=== PATIENT | female | born 1950 | race Caucasian/White ===

== ENCOUNTER 2017-11-06 16:32 | Inpatient (IN) ==
--- NOTE | 2017-11-06 17:52 | Emergency Department Note ---
Disposition Clinical Impression: Fracture of femoral neck, right Qualifiers: Encounter type: initial encounter Fracture type: closed Qualified Code(s): S72.001A - Fracture of unspecified part of neck of right femur, initial encounter for closed fracture Fall Qualifiers: Encounter type: initial encounter Qualified Code(s): W19.XXXA - Unspecified fall, initial encounter Disposition: Admitted As Inpatient Condition: Fair Time of Disposition: 00:42 Fall HPI - General Chief Complaint: ED Fall Stated Complaint: fall w/ right hip pain Time Seen by Provider: 11/06/17 17:42 Source: patient, family, EMS Mode of arrival: EMS Limitations: other Nursing Notes Reviewed: Yes Vital Signs Reviewed: Yes - History of Present Illness HPI Narrative: 67-year-old female complains of ground level mechanical fall 1 hour ago. Patient was standing when she suddenly lost her balance slipped and landed on her right hip where she currently feels 10 out of 10 sharp pain with movement. There is no loss of consciousness. Patient states she did not hit her head. Patient only has pain symptoms at the right hip. - Related Data Home Medications Medication Instructions Recorded Confirmed Aspirin Enteric Coated [Aspirin EC] 81 mg PO DAILY 08/15/16 11/06/17 Citalopram [CeleXA] 20 mg PO DAILY 08/15/16 11/06/17 Multivitamin [One Daily 1 each PO DAILY 11/06/17 11/06/17 Multivitamin] Mv-Mn/FA/Vit K1/Lycop/Lut/Zeax 1 each PO DAILY 11/06/17 11/06/17 [Ocuvite Eye + Multi Tablet] Pravastatin Sodium [Pravachol] 20 mg PO HS 11/06/17 11/06/17 Allergies Allergy/AdvReac Type Severity Reaction Status Date / Time No Known Allergies Allergy Verified 08/10/17 07:48 All systems ED: reviewed and negative except as stated. 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 - Social History Smoking Status: Never smoker Alcohol use: Reports: none Drug use: Reports: none Physical Exam Vital Signs Temperature 98.8 F 11/06/17 17:04 Pulse Rate 64 11/06/17 17:04 Respiratory Rate 20 11/06/17 17:04 Blood Pressure 135/80 11/06/17 17:04 O2 Sat by Pulse Oximetry 98 11/06/17 17:04 Temperature 98.8 F 11/06/17 17:04 Pulse Rate 64 11/06/17 17:04 Respiratory Rate 20 11/06/17 17:04 Blood Pressure 135/80 11/06/17 17:04 O2 Sat by Pulse Oximetry 98 11/06/17 17:04 Oxygen Delivery Oxygen Delivery Room Air CONSTITUTIONAL: Alert and oriented X3, well-nourished, well appearing, in no apparent distress HEAD: Normocephalic; atraumatic. EYES: PERRL, no scleral icterus. NOSE: The nose is normal in appearance without rhinorrhea RESP: Normal chest excursion with respiration; breath sounds clear and equal bilaterally; no wheezes, rhonchi, or rales CARD: Regular rhythm, without murmurs, rub or gallop ABD: Non-distended; non-tender, soft,without rigidity, rebound or guarding Back: Nontender to palpation SKIN: Normal for age and race; warm and dry; no apparent lesions EXTREMITIES: Pulses are 2 plus and equal times 4 extremities, no peripheral edema or calf muscle pain. Right lower extremity shortened and externally rotated. Tender at the hip. No tenderness at the knee or ankle, - General Limitations: no limitations General appearance: alert, in no apparent distress - Head Head exam: atraumatic, normocephalic, normal inspection - Eye Eye exam: Present: normal appearance, PERRL, EOMI. Absent: periorbital swelling , periorbital tenderness - ENT ENT exam: normal exam, normal oropharynx - Neck Neck exam: Present: normal inspection. Absent: tenderness (no midline cervical tenderness) - Chest Chest inspection: Present: normal inspection - Respiratory Respiratory exam: Present: normal lung sounds bilaterally - Cardiovascular Cardiovascular exam: Present: regular rate, normal rhythm, normal heart sounds - Abdominal Exam Abdominal exam: Present: soft, Non-Tender, normal bowel sounds - Extremities Exam Extremities exam: Present: tenderness, other (hip TTP and unable to perform ROM at R hip without significant pain. RLE externally rotated and shortened; NVI; remainder on RLE nontenter and full rOM. LLE wnl.) - Expanded Lower Extremity Exam Hip/Pelvis exam: Present: tenderness, external rotation, shortening Upper leg exam: Present: normal inspection Knee exam: Present: normal inspection Lower leg exam: Present: normal inspection Ankle exam: Present: normal inspection Foot/toe exam: Present: normal inspection Neurovascular/Tendon exam: Present: normal capillary refill. Absent: pulse deficit, motor deficit, sensory deficit - Back Exam Back exam: Present: normal inspection. Absent: tenderness, CVA tenderness (R), CVA tenderness (L), paraspinal tenderness, vertebral tenderness - Neurological Exam Neurological exam: Present: alert, oriented X3, CN II-XII intact. Absent: normal gait, reflexes normal - Psychiatric Psychiatric exam: Absent: normal affect, normal mood - Skin Skin exam: Absent: warm, dry, intact, normal color, other (no abrasions/lacs/ contusions) Course - Reevaluation(s) Reevaluation #1: Patient placed in a c-collar, labs and imaging order to include CT cervical, chest x-ray, pelvis and hip. IV normal saline and Zofran and fentanyl ordered Time: 19:07 Reevaluation #2: Patient's back from imaging. Patient states her pain is under control Time: 19:09 Reevaluation #3: Patient doing well and pain is still controlled Time: 19:48 Additional Reevaluation(s): 2030 hrs.: Patient doing well, CT cervical negative for fracture and c-collar removed. - Consultations Consultation #1: adilia Time: 20:41 Vital Signs Temperature 98.8 F 11/06/17 17:04 Pulse Rate 64 11/06/17 17:04 Respiratory Rate 20 11/06/17 17:04 Blood Pressure 135/80 11/06/17 17:04 O2 Sat by Pulse Oximetry 98 11/06/17 17:04 Temperature 99.3 F 11/07/17 12:27 Pulse Rate 64 11/07/17 12:27 Respiratory Rate 16 11/07/17 12:27 Blood Pressure 155/71 11/07/17 12:27 O2 Sat by Pulse Oximetry 95 11/07/17 12:27 Oxygen Delivery Oxygen Delivery Room Air Fall - MDM Narrative Medical decision making narrative: Ground-level mechanical fall without loss of consciousness concerning for possible right hip fracture. Patient's right lower extremity shows clinical signs of fracture with shortening and external rotatation. X-rays ordered, CT head and CT cervical spine also ordered to rule out other fractures. Chest x- ray ordered as well. Patient will most likely need surgery and preop labs ordered. X-ray shows acute right sided femoral neck fracture. Patient was given 25 g of fentanyl for pain. Patient currently resting easy pain-free. The rest the patient's imaging was free of fractures. I contacted Dr. Hope of orthopedics who states that he will see the patient in the morning. Preop labs ordered and were clinically unremarkable. WBC count mildly elevated most likely secondary to stress Demargination. Current plan is for admission to medicine. The patient family accepts decision for admission. Dr. Ruiz the hospitalist has accepted patient for admission in stable position. - Lab Data Lab results reviewed: Yes I reviewed the patient's lab results. Lab results narrative: Short CBC 11/06/17 Range/Units 18:20 WBC 12.5 H (4.3-11.1) K/mcL Hgb 13.1 (11.5-15.4) g/dL Hct 39.6 (35.3-44.9) % Plt Count 274 (140-400) K/mcL Neutrophils # 10.3 H (1.6-8.9) K/mcL BMP 11/06/17 Range/Units 18:20 Sodium 139 (136-145) mEq/L Potassium 4.2 (3.5-5.1) mEq/L Chloride 103 (98-107) mEq/L Carbon Dioxide 29 (23-29) mEq/L BUN 19 (8-23) mg/dL Creatinine 0.88 (0.60-1.20) mg/dL Glucose 224 H (70-105) mg/dL Calcium 9.3 (8.6-10.3) mg/dL Cardiac Enzymes 11/06/17 Range/Units 18:20 Troponin I < 0.03 (< 0.04) ng/mL Urine 11/06/17 Range/Units 20:00 Urine Color Yellow (Yellow) Urine Clarity Clear (Clear) Urine pH 6.5 (5.0-8.0) pH Units Ur Specific [place] 1.023 (1.010-1.025) Urine Protein Negative (Neg-Trace) mg/dL Urine Glucose (UA) 100 H (Normal) mg/dL Result diagrams: 11/07/17 05:19 11/07/17 05:19 Lab Results 11/06/17 11/06/17 11/06/17 Range/Units 18:20 18:20 18:20 WBC 12.5 H (4.3-11.1) K/mcL RBC 4.28 (3.82-4.97) M/mcL Hgb 13.1 (11.5-15.4) g/dL Hct 39.6 (35.3-44.9) % MCV 92.5 (83.0-100.0) fL MCH 30.6 (28.0-33.3) pg MCHC 33.1 (31.6-35.5) g/dL RDW 11.8 (11.5-14.5) % Plt Count 274 (140-400) K/mcL MPV 9.2 L (9.4-12.4) fL Immature Gran % 0.9 (0-4) % Seg Neutrophils % 82.4 % Lymphocytes % 11.4 % Monocytes % 4.1 % Eosinophils % 0.6 % Basophils % 0.6 % Neutrophils # 10.3 H (1.6-8.9) K/mcL Lymphocytes # 1.4 (0.6-4.6) K/mcL Monocytes # 0.5 (0.0-1.3) K/mcL Eosinophils # 0.1 (0.0-0.6) K/mcL Basophils # 0.1 (0.0-0.2) K/mcL Sodium 139 (136-145) mEq/L Potassium 4.2 (3.5-5.1) mEq/L Chloride 103 (98-107) mEq/L Carbon Dioxide 29 (23-29) mEq/L BUN 19 (8-23) mg/dL Creatinine 0.88 (0.60-1.20) mg/dL Est GFR ( Amer) > 60 (> 60) Est GFR (Non-Af Amer) > 60 (> 60) BUN/Creatinine Ratio 22 (6-26) Glucose 224 H (70-105) mg/dL Calculated Osmolality 297 (280-300) Calcium 9.3 (8.6-10.3) mg/dL Troponin I < 0.03 (< 0.04) ng/mL Urine Color (Yellow) Urine Clarity (Clear) Urine pH (5.0-8.0) pH Units Ur Specific [place] (1.010-1.025) Urine Protein (Neg-Trace) mg/dL Urine Glucose (UA) (Normal) mg/dL Urine Ketones (Negative) mg/dL Urine Blood (Negative) Urine Nitrite (Negative) Urine Bilirubin (Negative) Urine Urobilinogen (Normal) mg/dL Ur Leukocyte Esterase (Negative) Urine Microscopic RBC (0-3) per hpf Urine Microscopic WBC (0-3) per hpf Ur Squamous Epith Cells (None-Few) per lpf Urine Bacteria (None-Few) per hpf Hyaline Casts (None-Few) per lpf 11/06/17 Range/Units 20:00 WBC (4.3-11.1) K/mcL RBC (3.82-4.97) M/mcL Hgb (11.5-15.4) g/dL Hct (35.3-44.9) % MCV (83.0-100.0) fL MCH (28.0-33.3) pg MCHC (31.6-35.5) g/dL RDW (11.5-14.5) % Plt Count (140-400) K/mcL MPV (9.4-12.4) fL Immature Gran % (0-4) % Seg Neutrophils % % Lymphocytes % % Monocytes % % Eosinophils % % Basophils % % Neutrophils # (1.6-8.9) K/mcL Lymphocytes # (0.6-4.6) K/mcL Monocytes # (0.0-1.3) K/mcL Eosinophils # (0.0-0.6) K/mcL Basophils # (0.0-0.2) K/mcL Sodium (136-145) mEq/L Potassium (3.5-5.1) mEq/L Chloride (98-107) mEq/L Carbon Dioxide (23-29) mEq/L BUN (8-23) mg/dL Creatinine (0.60-1.20) mg/dL Est GFR ( Amer) (> 60) Est GFR (Non-Af Amer) (> 60) BUN/Creatinine Ratio (6-26) Glucose (70-105) mg/dL Calculated Osmolality (280-300) Calcium (8.6-10.3) mg/dL Troponin I (< 0.04) ng/mL Urine Color Yellow (Yellow) Urine Clarity Clear (Clear) Urine pH 6.5 (5.0-8.0) pH Units Ur Specific [place] 1.023 (1.010-1.025) Urine Protein Negative (Neg-Trace) mg/dL Urine Glucose (UA) 100 H (Normal) mg/dL Urine Ketones Negative (Negative) mg/dL Urine Blood Negative (Negative) Urine Nitrite Positive A (Negative) Urine Bilirubin Negative (Negative) Urine Urobilinogen Normal (Normal) mg/dL Ur Leukocyte Esterase Negative (Negative) Urine Microscopic RBC 0-3 (0-3) per hpf Urine Microscopic WBC 0-3 (0-3) per hpf Ur Squamous Epith Cells Many H (None-Few) per lpf Urine Bacteria Many H (None-Few) per hpf Hyaline Casts None Seen (None-Few) per lpf - Radiology Data Radiology results reviewed: Yes I reviewed the patient's radiology results. Hip X-Ray 11/06/17 17:08 IMPRESSION: Acute right femoral neck fracture. D/ / Tyler Hu MD / Tyler Hu MD Interpreting Provider: Tyler Hu MD Cervical Spine CT 11/06/17 17:58 IMPRESSION: No acute abnormality of the cervical spine. D/ / Nakul Case MD / Nakul Case MD Interpreting Provider: Nakul Case MD Chest X-Ray 11/06/17 17:59 IMPRESSION: No acute abnormality. D/ / Tyler Hu MD / Tyler Hu MD Interpreting Provider: Tyler Hu MD Head CT 11/06/17 19:00 IMPRESSION: Somewhat limited evaluation due to streak artifact. No obvious acute intracranial pathology. No intracranial hemorrhage, mass effect, or midline shift. D/ / Bart Luciano MD / Bart Luciano MD Interpreting Provider: Bart Luciano MD - EKG Data EKG attestation: Yes I reviewed and interpreted this EKG. EKG results narrative: EKG taken 11/06/2017 at 1947 hrs. shows sinus rhythm at a rate of 71 beats minute with no acute ST elevations or depressions and any leads, no crit or no QT prolongation. Attestation Statement - Attestation Attestation: I examined this patient and my medical decision-making was reviewed with the Resident Physician, Dr. Vu. I agree with the documented findings, disposition and treatment plan as described except to the extent set forth below. 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 was attempting to assist her in getting out of the vehicle, when she lost her footing and fell onto her R hip. Pt with immediate pain and inability to get up. Pt with no head injury, no c/o neck/back pain. No other injuries sustained in fall. Pt arrives with pain at R hip with shortening and external rotation of RLE. NVI with good pulses and cap refill. No TTP at knee/ankle. Pt placed in c- collar secondary to distracting injury. I agree with pt's PE findings as documented. Pt with PIV est, and given IV pain/nausea meds, placed on CM/pulse ox, and EKG obtained. shows NSR with no ischemia. Pt had labs sent, kerns placed with UA sent, and sent for imaging. Labs wnl, with exception of mild elevation of glucose without acidosis. Pt's daughter arrived later in ED course. State her mother has significant short term memory loss from remote cerebral aneurysm, and concerned with possible head injury. Pt awake and alert, GCS=15, normal neuro exam, but included CT brain due to daughter's concern and small 1 cm palpable area of STS to center of frontal area of scalp. No contusion/hematoma/ecchymosis/abrasions. CT head/neck wnl. C-collar removed. CXR wnl. R hip/pelvis shows acute femoral neck fx. D/W ortho, conculted from ED to see pt. Pt admitted to hospitalist. Results d/w pt and family.
[2017-11-06] MEDS ORDERED: *HR* HYDROcodone/Acet 5/325 mg TABLET PO ONE (17:53)
[2017-11-06] MEDS ORDERED: *HR* FentaNYL (PF) 100 MCG/2 ML VIAL IVP ONE ×2 (18:00→19:14)
[2017-11-06] MEDS ORDERED: 0.9 % Sodium Chloride 1,000 ML IVC ONE (18:00)
[2017-11-06] MEDS ORDERED: Ondansetron 4 MG/2 ML VIAL IVP ONE (18:00)
[2017-11-06 18:49] LABS: BUN/Creatinine Ratio 22 (6-26); Blood Urea Nitrogen 19 mg/dL (8-23); Calcium 9.3 mg/dL (8.6-10.3); Carbon Dioxide 29 mEq/L (23-29); Chloride 103 mEq/L (98-107); Glucose 224 mg/dL (70-105); Osmolality,Calculated 297 (280-300); Potassium 4.2 mEq/L (3.5-5.1); Sodium 139 mEq/L (136-145); eGFR For African Americans > 60 (> 60); eGFR For Non-African Americans > 60 (> 60)
[2017-11-06 18:52] LABS: Basophils # 0.1 K/mcL (0.0-0.2); Basophils % 0.6 %; Eosinophils # 0.1 K/mcL (0.0-0.6); Eosinophils % 0.6 %; Hematocrit 39.6 % (35.3-44.9); Hemoglobin 13.1 g/dL (11.5-15.4); Immature Granulocytes % 0.9 % (0-4); Lymphocytes # 1.4 K/mcL (0.6-4.6); Lymphocytes % 11.4 %; Mean Corpuscular HGB Conc 33.1 g/dL (31.6-35.5); Mean Corpuscular Hemoglobin 30.6 pg (28.0-33.3); Mean Corpuscular Volume 92.5 fL (83.0-100.0); Mean Platelet Volume 9.2 fL (9.4-12.4); Monocytes # 0.5 K/mcL (0.0-1.3); Monocytes % 4.1 %; Neutrophils # 10.3 K/mcL (1.6-8.9); Platelet Count 274 K/mcL (140-400); Red Blood Count 4.28 M/mcL (3.82-4.97); Red Cell Distribution Width 11.8 % (11.5-14.5); Segmented Neutrophils % 82.4 %
[2017-11-06 20:28] LABS: Bilirubin,Urine Negative (Negative); Blood,Urine Negative (Negative); Clarity,Urine Clear (Clear); Color,Urine Yellow (Yellow); Glucose,Urine (UA) 100 mg/dL (Normal); Ketones,Urine Negative (Negative); Leukocyte Esterase,Urine Negative (Negative); Nitrite,Urine Positive (Negative); PH,Urine 6.5 pH Units (5.0-8.0); Protein,Urine Negative (Neg-Trace); Specific Gravity,Urine 1.023 (1.010-1.025); Urobilinogen,Urine Normal (Normal)
[2017-11-06 20:30] LABS: Bacteria,Urine Many per hpf (None-Few); Hyaline Casts,Urine None Seen per lpf (None-Few); RBC,Urine 0-3 per hpf (0-3); Squamous Epithelial Cell,Urine Many per lpf (None-Few); WBC,Urine 0-3 per hpf (0-3)
[2017-11-06] MEDS ORDERED: Naloxone 0.4 MG/ML INJ IVP PRN (21:34)
--- NOTE | 2017-11-06 21:48 | Internal Med History&Physical ---
Date of Encounter: 11/06/17 Time of Encounter: 21:00 Assessment and Plan (1) Fracture of femoral neck, right Current visit: Yes Status: Acute Pt has mechanical fall and Rt femoral neck fracture, need surgery. - Consult orthopedics - IVF, NPO from midnight, pain med as needed - EKG reviewed, unremarkable - Pt's daughter report "heart attack" in 2002 when she had cerabral hemmorhage, no chest pain or SOB since then, EKG unremarkable. Has hx of tachycardia and has ablation in 2002, no further tachycardia since then. Pt has short memory loss since 2002, stable in last 15 yrs. Pt bear certain risk for surgery but benifit of surgery override risks, family understand the risks. 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 (4) History of tachycardia Current visit: Yes Status: Acute Not sure what kind of tachycardia, SVT? WPW?, had ablation in 2002, no further tachycardia since then. (5) CAD (coronary artery disease) Current visit: Yes Status: Suspected Pt's daughter report "heart attack" in 2002, no stent or catheterization done. Pt has been stable since then, no chest pain or SOB. EKG reviewed, no evidence of old infarct. Qualifiers: Coronary Disease-Associated Artery/Lesion type: augustine artery [place] vs. transplanted heart: augustine heart Associated angina: without angina Qualified Code(s): I25.10 - Atherosclerotic heart disease of [place] coronary artery without angina pectoris (6) DVT prophylaxis Current visit: Yes Status: Acute SCD now, start AC after surgery Internal Medicine - H&P: HPI Chief complaint: Right hip pain Admitted From: Home Plans for Post Hospital Care: Home History of present illness: Ms. Gutierrez is a 67 year old female with hx of brain aneurysm complicated with brain hemorrhage s/p coil of aneurysm, Hx of tachycardia s/p ablation, hx of "heart attack", present to ER for mechanical fall and right hip pain. Pt has short memory problem due to brain aneurysm and hemorrhage, Hx obtained mainly from pt's daughter. Pt has fall today when she get out of the car. Denies LOC, denies head/neck injury. Pt is general fine, denies recent fever, cough, SOB, chest pain, nausea or vomiting. In ER, Hip XR shows right femoral neck fracture. Orthopedic consult called by ER, admitted for surgery. Past Med Surg Social Fam HX - Past Medical History Medical history: dementia, other Psychiatric history: no psych history - Social History Smoking Status: Never smoker Smokeless Tobacco Status: No Alcohol use: none Drug use: none - Family History Mother History Unknown: Yes Internal Medicine - H&P: Meds Aspirin Enteric Coated [Aspirin EC] 81 mg PO DAILY 08/15/16 [History] Citalopram [CeleXA] 20 mg PO DAILY 08/15/16 [History] Multivitamin [One Daily Multivitamin] 1 each PO DAILY 11/06/17 [History] Mv-Mn/FA/Vit K1/Lycop/Lut/Zeax [Ocuvite Eye + Multi Tablet] 1 each PO DAILY 03/18 [History] Pravastatin Sodium [Pravachol] 20 mg PO HS 11/06/17 [History] 3 Allergy/AdvReac Type Severity Reaction Status Date / Time No Known Allergies Allergy Verified 08/10/17 07:48 All Systems PM: A 10-system review of systems was performed and is negative for pertinent findings except as documented above in the HPI. - Constitutional Vitals: Temp Pulse Resp BP Pulse Ox 98.8 F 87 16 137/82 96 11/06/17 17:04 11/06/17 21:08 11/06/17 21:08 11/06/17 21:08 11/06/17 21:08 General appearance: Present: A&O X 2, pleasant, no acute distress, answers questions appropriately - Head Head exam: Present: atraumatic, normocephalic - Eye Eye exam: Present: PERRL, conjuntiva pink, sclera anicteric Pupils: Present: PERRL - Neck Neck exam general surgery: Present: supple, trachea midline. Absent: lymphadenopathy - Respiratory Respiratory exam: Present: CTAB. Absent: accessory muscle use, rales, rhonchi, wheezes - Cardiovascular Cardiovascular exam: Present: RRR, +S1, +S2. Absent: diastolic murmur, gallop, rubs, systolic murmur - GI/Abdominal GI/Abdominal exam: Present: normal bowel sounds, soft, no peritoneal signs. Absent: distended, tenderness - Extremities Exam Extremities exam: Present: warm, radial pulses palpable and symmetrical. Absent : calf tenderness, cyanotic, pedal edema Additional comments: Right leg ROM limited due to pain - Neurological Exam Neurological exam: Present: CN II-XII intact, oriented X3, no focal deficits. Absent: pronater drift, facial droop, speech deficit - Skin Skin exam: Present: dry, intact Internal Med - H&P Results - Labs CBC & Chem 7: 11/06/17 18:20 11/06/17 18:20 Labs: Short CBC 11/06/17 Range/Units 18:20 WBC 12.5 H (4.3-11.1) K/mcL Hgb 13.1 (11.5-15.4) g/dL Hct 39.6 (35.3-44.9) % Plt Count 274 (140-400) K/mcL Neutrophils # 10.3 H (1.6-8.9) K/mcL BMP 11/06/17 18:20 Sodium 139 Potassium 4.2 Chloride 103 Carbon Dioxide 29 BUN 19 Creatinine 0.88 Glucose 224 H Calcium 9.3 Cardiac Enzymes 11/06/17 Range/Units 18:20 Troponin I < 0.03 (< 0.04) ng/mL Urine 11/06/17 Range/Units 20:00 Urine Color Yellow (Yellow) Urine Clarity Clear (Clear) Urine pH 6.5 (5.0-8.0) pH Units Ur Specific [place] 1.023 (1.010-1.025) Urine Protein Negative (Neg-Trace) mg/dL Urine Glucose (UA) 100 H (Normal) mg/dL - EKG Data -: EKG Interpreted by Myself EKG shows normal: sinus rhythm, ST-T waves (non-specific changes, no ST elevation depression or T inversion.) Rate: normal - Impressions ITS Impressions Hip X-Ray 11/06/17 17:08 IMPRESSION: Acute right femoral neck fracture. D/ / Tyler Hu MD / Tyler Hu MD Interpreting Provider: Tyler Hu MD Cervical Spine CT 11/06/17 17:58 IMPRESSION: No acute abnormality of the cervical spine. D/ / Nakul Case MD / Nakul Case MD Interpreting Provider: Nakul Case MD Chest X-Ray 11/06/17 17:59 IMPRESSION: No acute abnormality. D/ / Tyler Hu MD / Tyler Hu MD Interpreting Provider: Tyler Hu MD Head CT 11/06/17 19:00 IMPRESSION: Somewhat limited evaluation due to streak artifact. No obvious acute intracranial pathology. No intracranial hemorrhage, mass effect, or midline shift. D/ / Bart Luciano MD / Bart Luciano MD Interpreting Provider: Bart Luciano MD
[2017-11-07] MEDS: 0.9 % Sodium Chloride 1,000 ML IVC SCH ×2 (00:06→03:59)
[2017-11-07] MEDS: Ketorolac 15 MG/ML VIAL IVP PRN ×2 (00:08→08:14)
[2017-11-07 05:47] LABS: Basophils % 0.2 %; Hematocrit 35.7 % (35.3-44.9); Hemoglobin 12.5 g/dL (11.5-15.4); Immature Granulocytes % 0.5 % (0-4); Lymphocytes # 1.4 K/mcL (0.6-4.6); Lymphocytes % 11.3 %; Mean Corpuscular Hemoglobin 31.6 pg (28.0-33.3); Mean Corpuscular Volume 90.4 fL (83.0-100.0); Mean Platelet Volume 9.1 fL (9.4-12.4); Monocytes # 0.7 K/mcL (0.0-1.3); Monocytes % 5.6 %; Neutrophils # 10.2 K/mcL (1.6-8.9); Platelet Count 248 K/mcL (140-400); Red Blood Count 3.95 M/mcL (3.82-4.97); Red Cell Distribution Width 11.9 % (11.5-14.5); Segmented Neutrophils % 82.4 %
[2017-11-07 06:01] LABS: INR 1.1; Prothrombin Time 12.3 Seconds (9.4-12.1)
[2017-11-07 06:02] LABS: BUN/Creatinine Ratio 19 (6-26); Blood Urea Nitrogen 16 mg/dL (8-23); Calcium 8.9 mg/dL (8.6-10.3); Carbon Dioxide 29 mEq/L (23-29); Chloride 101 mEq/L (98-107); Glucose 152 mg/dL (70-105); Magnesium 1.9 mg/dL (1.6-2.6); Osmolality,Calculated 286 (280-300); Potassium 4.1 mEq/L (3.5-5.1); Sodium 136 mEq/L (136-145); eGFR For African Americans > 60 (> 60); eGFR For Non-African Americans > 60 (> 60)
--- NOTE | 2017-11-07 08:30 | Orthopedic Consult Note ---
Date of Encounter: 11/07/17 Time of Encounter: 08:29 History of Present Illness HPI: Ms. Gutierrez is a 67 year old female Status post fall yesterday with injury to right hip. Patient has a history of aneurysm which resulted in short-term memory loss. Patient seen with her family. Family denies any head trauma recently Physical exam Right lower extremity Neurovascular intact Decreased range of motion secondary to pain Short externally Rotated X-rays displaced right femoral neck fracture Recommendation right hip hemiarthroplasty. Past Med Surg Social Fam HX - Past Medical History Medical history: dementia, other Psychiatric history: no psych history - Social History Smoking Status: Never smoker Smokeless Tobacco Status: No Alcohol use: none Drug use: none - Family History Mother History Unknown: Yes Medications and Allergies Aspirin Enteric Coated [Aspirin EC] 81 mg PO DAILY 08/15/16 [History] Citalopram [CeleXA] 20 mg PO DAILY 08/15/16 [History] Multivitamin [One Daily Multivitamin] 1 each PO DAILY 11/06/17 [History] Mv-Mn/FA/Vit K1/Lycop/Lut/Zeax [Ocuvite Eye + Multi Tablet] 1 each PO DAILY 03/18 [History] Pravastatin Sodium [Pravachol] 20 mg PO HS 11/06/17 [History] 3 Allergy/AdvReac Type Severity Reaction Status Date / Time No Known Allergies Allergy Verified 08/10/17 07:48 All Systems Reviewed: A 10-system review of systems was performed and is negative for pertinent findings except as documented above in the HPI. Physical Exam - Constitutional Vitals: Temp Pulse Resp BP Pulse Ox 100.2 F H 94 16 147/73 98 11/07/17 05:10 11/07/17 06:30 11/07/17 06:30 11/07/17 06:30 11/07/17 06:30 Results - Labs Result Diagrams: 11/07/17 05:19 11/07/17 05:19 Labs: Abnormal lab results WBC 12.4 K/mcL (4.3-11.1) H 11/07/17 05:19 MPV 9.1 fL (9.4-12.4) L 11/07/17 05:19 Neutrophils # 10.2 K/mcL (1.6-8.9) H 11/07/17 05:19 PT 12.3 Seconds (9.4-12.1) H 11/07/17 05:19 Glucose 152 mg/dL (70-105) H 11/07/17 05:19 Urine Glucose (UA) 100 mg/dL (Normal) H 11/06/17 20:00 Urine Nitrite Positive (Negative) A 11/06/17 20:00 Ur Squamous Epith Cells Many per lpf (None-Few) H 11/06/17 20:00 Urine Bacteria Many per hpf (None-Few) H 11/06/17 20:00 H & H 11/07/17 Range/Units 05:19 Hgb 12.5 (11.5-15.4) g/dL Hct 35.7 (35.3-44.9) % All other labs normal. Consult Discharge Plan - Plan Referrals: Macie Barber, SENIOR USER EXPERIENCE ARCHITECT [Primary Care Provider] -
[2017-11-07] MEDS ORDERED: Aspirin Enteric Coated 81 MG Tablet PO SCH (09:00)
--- NOTE | 2017-11-07 10:03 | Internal Med Progress Note ---
Date of Encounter: 11/07/17 Time of Encounter: 09:45 - Assessment and plan (1) Fracture of femoral neck, right Current Visit: Yes Status: Acute Assessment and plan: At this point patient appears low risk for surgery. She apparently has prior coronary issues but no recent CP or other cardiac symptoms. Qualifiers: Encounter type: initial encounter Fracture type: closed Qualified Code(s) : S72.001A - Fracture of unspecified part of neck of right femur, initial encounter for closed fracture (2) Fever Current Visit: Yes Status: Acute Assessment and plan: Pt has had very low grade temp since admission. She has associated slight leukocytosis but no tachycardia. No cough or localizing symptoms of infection. May be related to acute injury to hip. Urine has nitrite but many epis. Will resend urine culture and check for influenza. CXR negative last night. At this time does not appear to be an issue with proceeding with surgery. Qualifiers: Fever type: due to other condition Qualified Code(s): R50.81 - Fever presenting with conditions classified elsewhere (3) CAD (coronary artery disease) Current Visit: Yes Status: Suspected Qualifiers: Coronary Disease-Associated Artery/Lesion type: [place] artery [place] vs. 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 She remains moderate to high risk due to potential for worsening clinical status. Ms Gutierrez had mechanical fall resulting in fracture R hip. She has had low grade temp since admission. Patient denies dysuria or cough. No myalgias or headache. No fever prior to admission. Denies abdominal pain or diarrhea. No rash. - Constitutional Vitals: Temp Pulse Resp BP Pulse Ox 100.2 F H 94 16 147/73 98 11/07/17 05:10 11/07/17 06:30 11/07/17 06:30 11/07/17 06:30 11/07/17 06:30 General appearance: Present: A&O X 2, pleasant, answers questions appropriately - Head Head exam: Present: atraumatic, normocephalic - Eye Eye exam: Present: EOMI, conjuntiva pink - ENT ENT exam: Present: mucous membranes dry - Respiratory Respiratory exam: Present: decreased breath sounds, CTAB Additional comments: Clear anteriorly and laterally bilaterally. - Cardiovascular Cardiovascular exam: Present: RRR. Absent: systolic murmur, tachycardia - GI/Abdominal GI/Abdominal exam: Present: normal bowel sounds, soft. Absent: tenderness - Extremities Exam Extremities exam: Present: tenderness, warm Additional comments: Tender R hip/groin - Neurological Exam Neurological exam: Present: alert. Absent: facial droop, speech deficit - Skin Skin exam: Present: warm. Absent: rash Internal Medicine: Result - Labs CBC & Chem 7: 11/07/17 05:19 11/07/17 05:19 Labs: Short CBC 11/07/17 Range/Units 05:19 WBC 12.4 H (4.3-11.1) K/mcL Hgb 12.5 (11.5-15.4) g/dL Hct 35.7 (35.3-44.9) % Plt Count 248 (140-400) K/mcL Neutrophils # 10.2 H (1.6-8.9) K/mcL BMP 11/07/17 05:19 Sodium 136 Potassium 4.1 Chloride 101 Carbon Dioxide 29 BUN 16 Creatinine 0.84 Glucose 152 H Calcium 8.9 - ABG Interpretation ABG results: PT/INR, D-dimer PT 12.3 Seconds (9.4-12.1) H 11/07/17 05:19 Consult Discharge Plan - Plan Referrals: Macie Barber, [employer] [Primary Care Provider] -
--- NOTE | 2017-11-07 12:42 | Electrocardiograph Report ---
[address] [place] [address] Test Date: 2017-11-06 Pat Name: Crystal Gutierrez Department: 102 Room: [facility] Gender: F Hr Operations Advisor: Amara : 1950 Requested By: Donaldo Vu Order Number: [id number] Reading MD: Leena Colon Measurements Intervals [place] Rate: 71 P: 68 [place]: 140 QRS: 12 QRSD: 86 T: 63 QT: 395 QTc: 418 Interpretive Statements SINUS RHYTHM NONSPECIFIC T-WAVE ABNORMALITY Electronically Signed On 11-07-2017 12:40:32 EST by Leena Colon
[2017-11-07 13:40] LABS: Adenovirus Not Detected (Not Detect); Bordetella Pertussis Not Detected (Not Detect); Chlamydophila pneumoniae Not Detected (Not Detect); Coronavirus 229E Not Detected (Not Detect); Coronavirus HKU1 Not Detected (Not Detect); Coronavirus NL63 Not Detected (Not Detect); Coronavirus OC43 Not Detected (Not Detect); Human Metapneumovirus Not Detected (Not Detect); Human Rhinovirus/Enterovirus Not Detected (Not Detect); Influenza A Subtype 2009 H1 Not Detected (Not Detect); Influenza A Untypeable Not Detected (Not Detect); Influenza B Not Detected (Not Detect); Mycoplasma pneumoniae Not Detected (Not Detect); Parainfluenza Virus 1 Not Detected (Not Detect); Parainfluenza Virus 2 Not Detected (Not Detect); Parainfluenza Virus 3 Not Detected (Not Detect); Parainfluenza Virus 4 Not Detected (Not Detect); Respiratory Syncytial Virus Not Detected (Not Detect)
--- NOTE | 2017-11-07 14:20 | Anesthesia Evaluation PreOp ---
Date of Encounter: 11/07/17 Time of Encounter: 14:18 - Past History Planned Operation: R-Pilo Hip re R-femoral neck Fx Cardiac History: CT (CT concurrent w/ hemorrhagic stroke 2002), Hyperlipidemia ( maintained on Pravastatin), Arrhythmia (Hx SVT s/p cardiac ablation) Pulmonary History: Denies Any Significant HX [employer] History: CVA (CVA s/p coil 2002), Other (Anxiety/Depression maintained on Celexa) Other Medical History: Denies Any Significant HX Anesthesia History: No Prior Anesthetic Complications, Past Anesthesia ( Aneurysm clipping [[place] 2002], R-Hip replacement 2007) Alcohol Use: none Drug use: none Medications and Allergies Aspirin Enteric Coated [Aspirin EC] 81 mg PO DAILY 08/15/16 [History] Citalopram [CeleXA] 20 mg PO DAILY 08/15/16 [History] Multivitamin [One Daily Multivitamin] 1 each PO DAILY 11/06/17 [History] Mv-Mn/FA/Vit K1/Lycop/Lut/Zeax [Ocuvite Eye + Multi Tablet] 1 each PO DAILY 03/18 [History] Pravastatin Sodium [Pravachol] 20 mg PO HS 11/06/17 [History] 3 Allergy/AdvReac Type Severity Reaction Status Date / Time No Known Allergies Allergy Verified 08/10/17 07:48 - Meds/Allergy Pre-op Review Medications Reviewed: Yes Allergies Reviewed: Yes Beta Blockers on Current Med List: No Anesthesia Results - Labs 11/07/17 05:19 11/07/17 05:19 Laboratory Results WBC 12.4 K/mcL (4.3-11.1) H 11/07/17 05:19 RBC 3.95 M/mcL (3.82-4.97) 11/07/17 05:19 Hgb 12.5 g/dL (11.5-15.4) 11/07/17 05:19 Hct 35.7 % (35.3-44.9) 11/07/17 05:19 MCV 90.4 fL (83.0-100.0) 11/07/17 05:19 MCH 31.6 pg (28.0-33.3) 11/07/17 05:19 MCHC 35.0 g/dL (31.6-35.5) 11/07/17 05:19 RDW 11.9 % (11.5-14.5) 11/07/17 05:19 Plt Count 248 K/mcL (140-400) 11/07/17 05:19 MPV 9.1 fL (9.4-12.4) L 11/07/17 05:19 Immature Gran % 0.5 % (0-4) 11/07/17 05:19 Seg Neutrophils % 82.4 % 11/07/17 05:19 Lymphocytes % 11.3 % 11/07/17 05:19 Monocytes % 5.6 % 11/07/17 05:19 Eosinophils % 0.0 % 11/07/17 05:19 Basophils % 0.2 % 11/07/17 05:19 Neutrophils # 10.2 K/mcL (1.6-8.9) H 11/07/17 05:19 Lymphocytes # 1.4 K/mcL (0.6-4.6) 11/07/17 05:19 Monocytes # 0.7 K/mcL (0.0-1.3) 11/07/17 05:19 Eosinophils # 0.0 K/mcL (0.0-0.6) 11/07/17 05:19 Basophils # 0.0 K/mcL (0.0-0.2) 11/07/17 05:19 PT 12.3 Seconds (9.4-12.1) H 11/07/17 05:19 INR 1.1 11/07/17 05:19 Sodium 136 mEq/L (136-145) 11/07/17 05:19 Potassium 4.1 mEq/L (3.5-5.1) 11/07/17 05:19 Chloride 101 mEq/L (98-107) 11/07/17 05:19 Carbon Dioxide 29 mEq/L (23-29) 11/07/17 05:19 BUN 16 mg/dL (8-23) 11/07/17 05:19 Creatinine 0.84 mg/dL (0.60-1.20) 11/07/17 05:19 Est GFR ( Amer) > 60 (> 60) 11/07/17 05:19 Est GFR (Non-Af Amer) > 60 (> 60) 11/07/17 05:19 BUN/Creatinine Ratio 19 (6-26) 11/07/17 05:19 Glucose 152 mg/dL (70-105) H 11/07/17 05:19 Calculated Osmolality 286 (280-300) 11/07/17 05:19 Calcium 8.9 mg/dL (8.6-10.3) 11/07/17 05:19 Magnesium 1.9 mg/dL (1.6-2.6) 11/07/17 05:19 Troponin I < 0.03 ng/mL (< 0.04) 11/06/17 18:20 Urine Color Yellow (Yellow) 11/06/17 20:00 Urine Clarity Clear (Clear) 11/06/17 20:00 Urine pH 6.5 pH Units (5.0-8.0) 11/06/17 20:00 Ur Specific [place] 1.023 (1.010-1.025) 11/06/17 20:00 Urine Protein Negative mg/dL (Neg-Trace) 11/06/17 20:00 Urine Glucose (UA) 100 mg/dL (Normal) H 11/06/17 20:00 Urine Ketones Negative mg/dL (Negative) 11/06/17 20:00 Urine Blood Negative (Negative) 11/06/17 20:00 Urine Nitrite Positive (Negative) A 11/06/17 20:00 Urine Bilirubin Negative (Negative) 11/06/17 20:00 Urine Urobilinogen Normal mg/dL (Normal) 11/06/17 20:00 Ur Leukocyte Esterase Negative (Negative) 11/06/17 20:00 Urine Microscopic RBC 0-3 per hpf (0-3) 11/06/17 20:00 Urine Microscopic WBC 0-3 per hpf (0-3) 11/06/17 20:00 Ur Squamous Epith Cells Many per lpf (None-Few) H 11/06/17 20:00 Urine Bacteria Many per hpf (None-Few) H 11/06/17 20:00 Hyaline Casts None Seen per lpf (None-Few) 11/06/17 20:00 Chlamy pneumoniae PCR Not Detected (Not Detect) 11/07/17 10:08 Adenovirus (PCR) Not Detected (Not Detect) 11/07/17 10:08 B. pertussis DNA (PCR) Not Detected (Not Detect) 11/07/17 10:08 B.parapertussis DNA PCR Not Detected (Not Detect) 11/07/17 10:08 Coronavirus OC43 (PCR) Not Detected (Not Detect) 11/07/17 10:08 Coronavirus HKU1 (PCR) Not Detected (Not Detect) 11/07/17 10:08 Coronavirus 229E (PCR) Not Detected (Not Detect) 11/07/17 10:08 Coronavirus NL63 (PCR) Not Detected (Not Detect) 11/07/17 10:08 Human Metapneumovir PCR Not Detected (Not Detect) 11/07/17 10:08 Influenza A (H1) PCR Not Detected (Not Detect) 11/07/17 10:08 Influ A (H1N1/09) PCR Not Detected (Not Detect) 11/07/17 10:08 Influenza A (H3) PCR Not Detected (Not Detect) 11/07/17 10:08 Influenza A Untype (PCR) Not Detected (Not Detect) 11/07/17 10:08 Influenza Type B (PCR) Not Detected (Not Detect) 11/07/17 10:08 M.pneumoniae DNA (PCR) Not Detected (Not Detect) 11/07/17 10:08 Parainfluenza 1 (PCR) Not Detected (Not Detect) 11/07/17 10:08 Parainfluenza 2 (PCR) Not Detected (Not Detect) 11/07/17 10:08 Parainfluenza 3 (PCR) Not Detected (Not Detect) 11/07/17 10:08 Parainfluenza 4 (PCR) Not Detected (Not Detect) 11/07/17 10:08 RSV (PCR) Not Detected (Not Detect) 11/07/17 10:08 Entero/Rhino (PCR) Not Detected (Not Detect) 11/07/17 10:08 Impressions Hip X-Ray 11/06/17 17:08 IMPRESSION: Acute right femoral neck fracture. D/ / Tyler Hu MD / Tyler Hu MD Interpreting Provider: Tyler Hu MD Cervical Spine CT 11/06/17 17:58 IMPRESSION: No acute abnormality of the cervical spine. D/ / Nakul Case MD / Nakul Case MD Interpreting Provider: Nakul Case MD Chest X-Ray 11/06/17 17:59 IMPRESSION: No acute abnormality. D/ / Tyler Hu MD / Tyler Hu MD Interpreting Provider: Tyler Hu MD Head CT 11/06/17 19:00 IMPRESSION: Somewhat limited evaluation due to streak artifact. No obvious acute intracranial pathology. No intracranial hemorrhage, mass effect, or midline shift. D/ / Bart Luciano MD / Bart Luciano MD Interpreting Provider: Bart Luciano MD - Imaging EKG: image reviewed (EKG dated 11/06/2017: 71bpm - NONSPECIFIC T-WAVE ABNORMALITY ) Anesthesia Exam Laboratory Results Vital Signs Temp Pulse Resp BP Pulse Ox 11/07/17 12:27 99.3 F 64 16 155/71 95 11/07/17 06:30 94 16 147/73 98 11/07/17 05:10 100.2 F H 90 16 152/71 98 11/06/17 23:49 100.0 F H 82 16 130/79 94 11/06/17 22:05 18 143/85 11/06/17 21:08 87 16 137/82 96 11/06/17 20:29 73 14 152/83 96 11/06/17 19:17 73 18 153/81 99 11/06/17 18:11 105 18 148/86 96 11/06/17 17:04 98.8 F 64 20 135/80 98 Intake and Output 11/06/17 11/07/17 11/07/17 23:59 07:59 15:59 Intake Total 1000 / 1000 1000 / 1000 Output Total 550 / 550 0 / 0 Balance 450 / 450 1000 / 1000 Intake: IV Fluids 1000 / 1000 1000 / 1000 0.9 % Sodium Chloride 1,000 ML 1000 / 1000 1000 / 1000 @ 100 mls/hr IVC .Q10H [facility] Rx#: [id number] Output: Urine 0 / 0 Catheter 550 / 550 Other: Weight 71.3 kg Height: 71bpm SR - - HEENT Pupil (Motor): Pupils equal, EOMI Mallampati: III Teeth: Normal Oral Opening: Greater than 3 - [employer] LOC: Oriented [employer] Motor: Normal RUE, Normal LUE, Normal RLE, Normal LLE, Normal Face [employer] Sensory: Normal: RUE, LUE, RLE, LLE, Face - Cardiac Rhythm: Regular Murmur: None - Pulmonary Breath Sounds: bilateral Clear Respiratory Effort: Symmetrical Anesthesia Assess/Plan ASA Score: 3 Modified Sharyn Scale for Level of Consciousness: Cooperative, oriented, and tranquil Anesthetic Plan: General, Regional Monitoring Plan: Standard Monitors Recovery Plan: PACU Anes Supervising Prov Stmt: Pt seen/evaluated, R&B discussed, questions answered and consent obtained. Sandra Zaragoza MD
[2017-11-07] MEDS ORDERED: Acetaminophen IV 1,000 MG/100 ML INFUS..BTL ONE (14:48)
[2017-11-07] MEDS ORDERED: Ethanol\\Acetic Acid\\Na Ace\\Ben 1,000 ML IRRIG.SOLN IR ONE (15:06)
[2017-11-07] MEDS ORDERED: *HR* Morphine Sulfate/PF 10 MG/10 ML AMPUL ONE (15:11)
[2017-11-07] MEDS ORDERED: Lidocaine -MPF 2% 2 ML VIAL ONE (15:12)
[2017-11-07] MEDS ORDERED: Propofol 500 MG/50 ML INFUS..BTL ONE (15:12)
[2017-11-07] MEDS ORDERED: *HR* Propofol 200 MG/20 ML VIAL IVP ONE (15:12)
[2017-11-07] MEDS ORDERED: *HR* Midazolam HCl 2 MG/2 ML VIAL ONE (15:19)
[2017-11-07] MEDS ORDERED: Ketamine *HR* 500 MG/10 ML MDV ONE (15:19)
[2017-11-07] MEDS ORDERED: *HR* FentaNYL (PF) 100 MCG/2 ML VIAL ONE (15:24)
[2017-11-07] MEDS ORDERED: *HR* OxyCODONE/APAP 5/325 TABLET PO PRN (15:34)
--- NOTE | 2017-11-07 15:39 | Anesthesia Procedures ---
Date of Encounter: 11/07/17 Time of Encounter: 15:15 Procedures: Anesthesia - Epidural/Spinal Patient ID/Chart reviewed: Yes Patient examined: Yes Supplemental Oxygen: None/Room Air (2) Sedation: Versed (mg): 2 Site Prep: Aseptic Technique, Sterile prep and drape, Povidone-Iodine 1% Patient position: upright Local Anesthetic: Lidocaine 1% Interspace Used: L3-L4 Blood: No CSF: Yes Paresthesia: No Spinal Needle Gauge: 25 Spinal Dose: 10 mg isobaric marcaine with duramorph 0.3mg Procedure: Patient sitting, midline L3-4, sterile P&D with betadine Patient tolerated procedure well
[2017-11-07] MEDS ORDERED: *HR* Phenylephrine 10 MG/ML VIAL ONE (15:44)
--- NOTE | 2017-11-07 16:09 | Orthopedic Operative Note ---
Date of procedure: 11/07/17 Pre-op diagnosis: Displaced right femoral neck fracture Post-op diagnosis: same Procedure: Procedure: Right hip hemiarthroplasty Estimated blood loss: 100 cc Hardware: Metal replacement, Biomet femoral stem size 1247 unipolar head +3 neck Operative procedure: The patient was brought to the operating room and placed on the operating room table. After general anesthesia was administered the patient was placed in the lateral decubitus position with the operative leg up. All pressure points were padded appropriately and the head was stabilized in the neutral position. The operative extremity was prepped and draped in the sterile surgical fashion patient received IV antibiotic prior to skin incision. A standard posterior approach is made to the operative hip, the incision was made through the skin and subcutaneous tissue hemostasis was obtained with Bovie cautery. Using careful sharp dissection the fascia was identified and incised exposing the external rotators. The external rotators were released off the greater trochanter and tagged with #2 FiberWire suture. The capsule was T'd open the femoral head was removed. The femoral neck cut was made at the appropriate level. The hip was brought into internal rotation and prepared with the drink box mechanic followed by the canal finder followed by broaching process in 20 degrees anteversion. It was broached up to the appropriate size 12. The femoral implant was impacted in place in 20 degrees of anteversion. Trial reduction found the hip to be stable with the appropriate sizes 47 unipolar head +3 neck. The trials were removed and the real implants were impacted in place. The hip was reduced, the hip had full extension and full flexion of the knee was in full extension.the patient had apparent equal leg length. The hip had excellent stability with forward flexion to 90 degrees adduction of 30 degrees and internal rotation of 60 degrees. The hip had no shuck. The hip was irrigated out with 2 L of pulse irrigation. End of anti-bacterial solution. . Fascia was closed with a running #2 PDS suture. The deep tissue was irrigated and closed deep with #1 PDS suture superficially with 0 PDS suture and skin was closed with Dermabond. The patient was placed in a sterile dressing and abduction pillow. The patient was extubated and transferred to the recovery room in stable condition. Anesthesia: spinal Surgeon: Oseas Skelton Was there an assistant men's soccer coach present: No Estimated blood loss (cc): 100 Condition: stable Disposition: PACU
[2017-11-07 16:50] LABS: Hematocrit 32.5 % (35.3-44.9)
[2017-11-07 16:53] LABS: Hemoglobin 10.9 g/dL (11.5-15.4)
--- NOTE | 2017-11-07 16:55 | Anesthesia Evaluation Post Op ---
Date of Encounter: 11/07/17 Time of Encounter: 17:10 - Vital Signs Vital Signs: Vital Signs/O2 Sat/Glucose, Most Current Temp Pulse Resp BP Pulse Ox 11/07/17 16:48 98.3 F 70 16 97/46 98 11/07/17 16:38 69 16 80/43 99 11/07/17 16:28 72 16 73/41 98 11/07/17 16:18 98.4 F 75 16 84/44 98 - Lungs Lungs: Clear Ascult./Percussion - Airway Airway: Non-obstructed - Cardiovascular Regular Rate - Mental Status Mental Status: Alert & Oriented, Answers Appropriately - Pain Pain Scale: 0 - Nausea Vomiting Nausea Vomiting: Not Present - Hydration Hydration: Ice chips - Discharge PostOp Status: Transfer Patient to floor
[2017-11-07] MEDS ORDERED: MOM Conc 10 ML UD.LIQ PO PRN (17:17)
[2017-11-07] MEDS ORDERED: Sennosides 8.6 MG TABLET PO PRN (17:17)
[2017-11-07] MEDS ORDERED: Naloxone 0.4 MG/ML INJ IVP PRN ×2 (17:17)
[2017-11-07] MEDS ORDERED: *HR* OxyCODONE Immed Rel 5 MG TABLET PO PRN (17:17)
[2017-11-07] MEDS ORDERED: 0.9 % Sodium Chloride 1,000 ML IVC SCH (17:17)
[2017-11-07] MEDS ORDERED: Ketorolac 15 MG/ML VIAL IVP PRN (17:17)
[2017-11-07] MEDS ORDERED: Ondansetron 4 MG/2 ML VIAL IVP PRN (17:17)
[2017-11-07] MEDS ORDERED: Temazepam 15 MG CAPSULE PO PRN (17:17)
[2017-11-07] MEDS ORDERED: CeFAZolin Premix DUPLEX 2,000 MG/50 ML BAG IVPB SCH (17:17)
[2017-11-07] MEDS ORDERED: Aspirin 325 MG TABLET PO ONE (18:09)
[2017-11-07] MEDS: Ascorbic Acid 500 MG TABLET PO SCH (18:16)
[2017-11-07] MEDS: CeFAZolin Premix DUPLEX 2,000 MG/50 ML BAG IVPB SCH (20:00)
[2017-11-07] MEDS: Ringers Solution, Lactated 1,000 ML IVC SCH (20:04)
[2017-11-08 03:57] LABS: BUN/Creatinine Ratio 16 (6-26); Blood Urea Nitrogen 13 mg/dL (8-23); Calcium 8.2 mg/dL (8.6-10.3); Carbon Dioxide 29 mEq/L (23-29); Chloride 103 mEq/L (98-107); Glucose 141 mg/dL (70-105); Osmolality,Calculated 286 (280-300); Potassium 3.6 mEq/L (3.5-5.1); Sodium 137 mEq/L (136-145); eGFR For African Americans > 60 (> 60); eGFR For Non-African Americans > 60 (> 60)
[2017-11-08] MEDS: CeFAZolin Premix DUPLEX 2,000 MG/50 ML BAG IVPB SCH (05:09)
--- NOTE | 2017-11-08 08:04 | Orthopedics Progress Note ---
Date of Encounter: 11/08/17 Time of Encounter: 08:04 Subjective Interval history: Patient was seen this morning doing well without complaints. Afebrile vital signs stable. Operative extremity: Neurovascularly intact Dressing clean dry and intact Calves nontender Assessment and plan: Continue with postoperative care Hematocrit 33 Objective Vital signs: Vital Signs Temp Pulse Resp BP Pulse Ox 11/08/17 07:11 100.0 F H 76 15 120/64 92 11/08/17 03:32 98.0 F 66 16 106/66 96 11/07/17 23:56 97.9 F 65 16 105/64 95 11/07/17 23:39 100 11/07/17 20:26 97.7 F 65 16 96/53 100 11/07/17 17:34 98.3 F 16 104/53 11/07/17 17:06 98.2 F 66 16 102/55 97 11/07/17 16:48 98.3 F 67 16 99/48 98 11/07/17 16:38 69 16 80/43 99 11/07/17 16:28 72 16 73/41 98 11/07/17 16:18 98.4 F 75 16 84/44 98 11/07/17 12:27 99.3 F 64 16 155/71 95 Intake and Output 11/07/17 11/08/17 11/08/17 23:59 07:59 15:59 Intake Total 390 / 390 Output Total 800 / 800 400 / 400 Balance -410 / -410 -400 / -400 Intake: IV Fluids 50 / 50 Ancef Premix DUPLEX 2,000 mg In 50 / 50 50 ml @ 100 mls/hr IVPB Q8H [facility] Rx#:[id number] Oral 340 / 340 Output: Catheter 800 / 800 400 / 400 Other: Weight 72.2 kg Patient Weight 11/08/17 23:59 Weight 72.2 kg - Labs CBC & BMP: 11/08/17 02:50 11/08/17 02:50 Labs: Abnormal lab results WBC 12.4 K/mcL (4.3-11.1) H 11/07/17 05:19 Hgb 11.0 g/dL (11.5-15.4) L 11/08/17 02:50 Hct 33.0 % (35.3-44.9) L 11/08/17 02:50 MPV 9.1 fL (9.4-12.4) L 11/07/17 05:19 Neutrophils # 10.2 K/mcL (1.6-8.9) H 11/07/17 05:19 PT 12.3 Seconds (9.4-12.1) H 11/07/17 05:19 Glucose 141 mg/dL (70-105) H 11/08/17 02:50 Calcium 8.2 mg/dL (8.6-10.3) L 11/08/17 02:50 Urine Glucose (UA) 100 mg/dL (Normal) H 11/06/17 20:00 Urine Nitrite Positive (Negative) A 11/06/17 20:00 Ur Squamous Epith Cells Many per lpf (None-Few) H 11/06/17 20:00 Urine Bacteria Many per hpf (None-Few) H 11/06/17 20:00 - VTE Documentation of Mechanical Device: Venous foot pump, device Consult Discharge Plan - Plan Referrals: Macie Barber, ROAD DESIGN DRAFTSPERSON [Primary Care Provider] -
[2017-11-08] MEDS: Ascorbic Acid 500 MG TABLET PO SCH ×2 (08:25→15:36)
[2017-11-08] MEDS: Multivit/Ca/Min/Fe/FA 1 TAB TABLET PO SCH (08:26)
[2017-11-08] MEDS: Acetaminophen 325 MG TABLET PO PRN ×2 (08:26→18:07)
[2017-11-08] MEDS ORDERED: Aspirin Enteric Coated 81 MG Tablet PO SCH (09:00)
--- NOTE | 2017-11-08 10:48 | Internal Med Progress Note ---
Date of Encounter: 11/08/17 Time of Encounter: 09:30 - Assessment and plan (1) Fracture of femoral neck, right Current Visit: Yes Status: Acute Assessment and plan: Underwent surgery yesterday without issue. Up in chair today and doing OK. Discharge planning. Qualifiers: Encounter type: subsequent encounter Fracture type: closed Fracture healing: with routine healing Qualified Code(s): S72.001D - Fracture of unspecified part of neck of right femur, subsequent encounter for closed fracture with routine healing (2) Fever Current Visit: Yes Status: Acute Assessment and plan: Had another low grade temp this AM. No source of infection noted. Expect is related to acute fracture and repair. Qualifiers: Fever type: due to other condition Qualified Code(s): R50.81 - Fever presenting with conditions classified elsewhere (3) CAD (coronary artery disease) Current Visit: Yes Status: Suspected Assessment and plan: No symptoms. Qualifiers: Coronary Disease-Associated Artery/Lesion type: [place] artery [place] vs. 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 She remains moderate to high risk due to potential for worsening clinical status. Ms Gutierrez had surgery to repair fracture hip last evening. She is up in chair at this time. She is having some hip pain but it is better than yesterday. Still has low grade temp earlier today. No CP or cough. No other symptoms. - Constitutional Vitals: Temp Pulse Resp BP Pulse Ox 100.0 F H 76 15 120/64 92 11/08/17 07:11 11/08/17 07:11 11/08/17 07:11 11/08/17 07:11 11/08/17 08:36 General appearance: Present: A&O X 2, pleasant, answers questions appropriately - Head Head exam: Present: atraumatic, normocephalic - Eye Eye exam: Present: conjuntiva pink - ENT ENT exam: Present: mucous membranes dry - Respiratory Respiratory exam: Present: CTAB. Absent: rales, rhonchi, wheezes - Cardiovascular Cardiovascular exam: Present: RRR. Absent: tachycardia - GI/Abdominal GI/Abdominal exam: Present: soft. Absent: tenderness - Extremities Exam Extremities exam: Present: warm. Absent: tenderness - Neurological Exam Neurological exam: Present: alert - Skin Skin exam: Present: warm. Absent: rash Internal Medicine: Result - Labs CBC & Chem 7: 11/08/17 02:50 11/08/17 02:50 Labs: Short CBC 11/07/17 11/08/17 Range/Units 16:39 02:50 Hgb 10.9 L D 11.0 L (11.5-15.4) g/dL Hct 32.5 L 33.0 L (35.3-44.9) % BMP 11/08/17 02:50 Sodium 137 Potassium 3.6 Chloride 103 Carbon Dioxide 29 BUN 13 Creatinine 0.79 Glucose 141 H Calcium 8.2 L - ABG Interpretation ABG results: PT/INR, D-dimer PT 12.3 Seconds (9.4-12.1) H 11/07/17 05:19 - Impressions Impressions Hip X-Ray 11/07/17 15:08 IMPRESSION: 1. Status post uncomplicated hip arthroplasty. D/ / Ky Verdugo MD / Ky Verdugo MD Interpreting Provider: Ky Verdugo MD - VTE Documentation of Mechanical Device: Venous foot pump, device Consult Discharge Plan - Plan Referrals: Macie Barber, FLORAL ASSOCIATE [Primary Care Provider] -
[2017-11-08] MEDS: *HR* OxyCODONE Immed Rel 5 MG TABLET PO PRN ×2 (15:36→20:53)
[2017-11-08] MEDS: Ringers Solution, Lactated 1,000 ML IVC SCH (16:40)
[2017-11-09] MEDS: *HR* OxyCODONE Immed Rel 5 MG TABLET PO PRN ×4 (01:07→14:37)
[2017-11-09 04:10] LABS: Mean Corpuscular HGB Conc 33.6 g/dL (31.6-35.5); Mean Corpuscular Hemoglobin 30.7 pg (28.0-33.3); Mean Corpuscular Volume 91.5 fL (83.0-100.0); Mean Platelet Volume 9.7 fL (9.4-12.4); Platelet Count 198 K/mcL (140-400); Red Blood Count 3.06 M/mcL (3.82-4.97); Red Cell Distribution Width 12.2 % (11.5-14.5)
[2017-11-09 04:12] LABS: Hemoglobin 9.4 g/dL (11.5-15.4)
[2017-11-09 04:42] LABS: BUN/Creatinine Ratio 15 (6-26); Blood Urea Nitrogen 11 mg/dL (8-23); Calcium 8.3 mg/dL (8.6-10.3); Carbon Dioxide 28 mEq/L (23-29); Chloride 104 mEq/L (98-107); Glucose 251 mg/dL (70-105); Osmolality,Calculated 294 (280-300); Potassium 3.7 mEq/L (3.5-5.1); Sodium 138 mEq/L (136-145); eGFR For African Americans > 60 (> 60); eGFR For Non-African Americans > 60 (> 60)
--- NOTE | 2017-11-09 06:43 | Orthopedics Progress Note ---
Date of Encounter: 11/09/17 Time of Encounter: 06:42 Subjective Interval history: Patient was seen this morning doing well without complaints. Afebrile vital signs stable. Operative extremity: Neurovascularly intact Dressing clean dry and intact Calves nontender Assessment and plan: Continue with postoperative care Hematocrit 28 okay for discharge when approved Objective Vital signs: Vital Signs Temp Pulse Resp BP Pulse Ox 11/08/17 20:06 99.1 F 79 19 128/78 94 11/08/17 16:40 99.6 F 79 16 138/54 94 11/08/17 12:03 99.5 F 76 16 121/75 95 11/08/17 09:00 76 16 121/75 95 11/08/17 08:36 92 11/08/17 07:11 100.0 F H 76 15 120/64 92 Intake and Output 11/08/17 11/08/17 11/09/17 15:59 23:59 07:59 Intake Total 1650 / 1650 Output Total 200 / 200 300 / 300 Balance -200 / -200 1350 / 1350 Intake: IV Fluids 1000 / 1000 Lactated Ringers 1,000 ML @ 75 1000 / 1000 mls/hr IVC .[id number] [facility] Rx#: [id number] Oral 650 / 650 Output: Urine 200 / 200 300 / 300 Other: # Voids 1 2 - Labs CBC & BMP: 11/09/17 03:16 11/09/17 03:16 Labs: Abnormal lab results RBC 3.06 M/mcL (3.82-4.97) L 11/09/17 03:16 Hgb 9.4 g/dL (11.5-15.4) L D 11/09/17 03:16 Hct 28.0 % (35.3-44.9) L 11/09/17 03:16 Neutrophils # 10.2 K/mcL (1.6-8.9) H 11/07/17 05:19 PT 12.3 Seconds (9.4-12.1) H 11/07/17 05:19 Glucose 251 mg/dL (70-105) H 11/09/17 03:16 Calcium 8.3 mg/dL (8.6-10.3) L 11/09/17 03:16 Urine Glucose (UA) 100 mg/dL (Normal) H 11/06/17 20:00 Urine Nitrite Positive (Negative) A 11/06/17 20:00 Ur Squamous Epith Cells Many per lpf (None-Few) H 11/06/17 20:00 Urine Bacteria Many per hpf (None-Few) H 11/06/17 20:00 - VTE Documentation of Mechanical Device: Venous foot pump, device Consult Discharge Plan - Plan Referrals: Cynthia Silverio, THU [Physician Pigment And Lacquer Mixer] - 11/15/17 3:25 pm Macie Barber, RESTAURANT HOU[employer]Y TEAM MEMBER [Primary Care Provider] -
[2017-11-09] MEDS: Ascorbic Acid 500 MG TABLET PO SCH (08:56)
[2017-11-09] MEDS: Multivit/Ca/Min/Fe/FA 1 TAB TABLET PO SCH (08:56)
[2017-11-09] MEDS: Acetaminophen 325 MG TABLET PO PRN ×2 (08:56→16:17)
[2017-11-09 11:21] VITALS: BP 110/65
--- NOTE | 2017-11-09 12:47 | Event Note ---
Date of Encounter: 11/09/17 Time of Encounter: 12:20 PCR- POD#2 Right hip hemiarthroplasty 11/07/17 PCR - Patient seen at bedside. doing well with no concerns at this time. Minimal drainage on dressings. no calf tenderness. Pain control: Adequate Participating in PT. All questions and concerns addressed. Educated on use of incentive spirometer, ambulation, and hydration. Patient educated on post-operative restrictions and care. Addressed: see above. D/C plan: Pending placement to [facility]CF (possibly [facility]). Will be here until Sunday or Sunday
--- NOTE | 2017-11-09 15:13 | Discharge Summary ---
Date of Encounter: 11/09/17 Time of Encounter: 08:00 - Discharge Diagnosis (1) Fracture of femoral neck, right Priority: Primary Status: Resolved Qualifiers: Encounter type: subsequent encounter Fracture type: closed Fracture healing: with routine healing Qualified Code(s): S72.001D - Fracture of unspecified part of neck of right femur, subsequent encounter for closed fracture with routine healing (2) Fever Priority: Secondary Status: Resolved Qualifiers: Fever type: due to other condition Qualified Code(s): R50.81 - Fever presenting with conditions classified elsewhere (3) CAD (coronary artery disease) Priority: Secondary Status: Suspected Qualifiers: Coronary Disease-Associated Artery/Lesion type: [place] artery [place] vs. 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 Priority: Secondary Status: Chronic (5) Hx of cerebral aneurysm repair Priority: Secondary Status: Chronic - Discharge Medications Prescriptions: OxyCODONE Immed Rel [Roxicodone 5 MG] 5 mg PO Q4HR PRN 1 Days #5 tablet PRN Reason: Pain unrelieved by Tylenol Aspirin/Calcium Carbonate/Mag [Aspirin Buffered 325 mg Tab] 325 mg PO DAILY #1 tablet Home Medications: Citalopram [CeleXA] 20 mg PO DAILY 08/15/16 [History] Multivitamin [One Daily Multivitamin] 1 each PO DAILY 11/06/17 [History] Mv-Mn/FA/Vit K1/Lycop/Lut/Zeax [Ocuvite Eye + Multi Tablet] 1 each PO DAILY 03/18 [History] Pravastatin Sodium [Pravachol] 20 mg PO HS 11/06/17 [History] Acetaminophen [Tylenol] 650 mg PO Q6HR PRN tablet 11/09/17 [Rx] Ascorbic Acid [Vitamin C] 500 mg PO BIDWM tablet 11/09/17 [Rx] Aspirin/Calcium Carbonate/Mag [Aspirin Buffered 325 mg Tab] 325 mg PO DAILY #1 tablet 11/09/17 [Rx] Docusate [Colace] 100 mg PO BID capsule 11/09/17 [Rx] Ferrous Sulfate 325 mg PO BIDWM tablet 11/09/17 [Rx] MOM Conc [MILK OF MAGNESIA conc] 5 ml PO HS PRN ud.liq 11/09/17 [Rx] OxyCODONE Immed Rel [Roxicodone 5 MG] 5 mg PO Q4HR PRN 1 Days #5 tablet [Rx] Allergies/Adverse Reactions: 3 Allergy/AdvReac Type Severity Reaction Status Date / Time No Known Allergies Allergy Verified 08/10/17 07:48 Date of admission: 11/06/17 22:04 Primary care physician: Macie Barber CNP Consults: 11/07/17 17:17 Consult to Nurse Navigator [CONS] Routine Comment: ortho navigator Consult to Occupational Therapy [CONS] Routine Comment: Evaluate, develop and implement POC Reason for Consult: total hip replacement Consult to Physical Therapy [CONS] Routine Comment: Evaluate, develop and implement POC Reason for Consult: total hip replacement Consult to Channel Specialist [CONS] Routine Reason for SW Consult: post op joint replacement RT Post Op Consult [CONS] Routine Discharging clinician: Kunal Mcpherson Anticipated date of discharge: 11/09/17 - Patient Status Disposition: Transfer SNF Condition: Fair Functional capacity at discharge: uses cane/walker Overall status at discharge: patient is progressing back to baseline - Discharge Instructions Follow Up With: Cynthia Silverio PAC [Physician Associate Product Integrity Engineer] - 11/15/17 3:25 pm Macie Barber CNP [Primary Care Provider] - Additional Instructions: Discharge Instructions: Total Hip Replacement Please call [facility] ([phone]), your Primary Care Physician, or report to the Emergency Room if you have any of the following symptoms: Nausea, vomiting, fever greater that 101.5, swelling, chest pain, shortness of breath, increased pain/redness/drainage/odor for your incision site, numbness/ tingling, or any other concerning symptoms. ACTIVITY:Weight-bearing as tolerated for 8 weeks with hip dislocation precautions that physical therapy taught you. You may progress as tolerated under the guidance of your physical therapist. You do not need to sleep with a pillow between your legs. You can also seep on the operative side or on your stomach. MEDICATIONS: Upon discharge resume your home medications. Take all the medications as prescribed. Take a stool softener if taking narcotic pain medications. Stool softeners are only effective if you drink enough fluids. Drink 6-8 glass of water or fluids a day, unless this is not allowed for another health problem. Despite using stool softeners, if you haven't had a bowel movement in 3 days, please switch to a gentle laxative. Gentle laxatives are sold over the counter. You should have a bowel movement within 24 hours, if not call the office. You will be discharged from the hospital with a prescription for pain medication. You are encouraged to decrease the use of narcotic pain medication as tolerated. Should you require a refill, please call the office. [facility] prescribes narcotic pain medication for only 4-6 weeks after surgery. If you require pain medication beyond this time period, you may be referred to your Primary Care Physician or to the Pain Clinic for further evaluation. Plan ahead for refills on pain medication as many narcotics either need to be picked up at the office or mailed. It is best to call 48-72 hours in advance of needing a prescription refill so you don't run out of medication. To help control the post-operative pain, you may take NSAIDs (Aleve,Advil, Motrin, ibuprofen, naprosyn) or Tylenol as prescribed on the bottle in addition to the pain medication. ANTICOAGULATION (blood thinners): Continue your Aspirin, Lovenox or Coumadin as prescribed to help prevent a blood clot in the leg or in the lungs. As long as your incision remains dry and you tolerate the NSAIDs (Aleve, Advil, Motrin, Ibuprofen, Naprosyn), it is OK to use the NSAIDS while you are taking your anticoagulation medication. Should your incision start to drain, stop the NSAID and contact our office. Common symptoms of blood clot in the legs include: localized pain, swelling, calf tenderness, redness or discoloration of the skin. Blood clot in the lung symptoms include: shortness of breath, rapid pulse, sweating, and chest pain that worsens with deep breathing, coughing up blood, lightheadedness, feelings of anxiety. If you experience any of these symptoms notify your physician immediately, go to the emergency room, or if having trouble breathing, call 911. WOUND CARE: Leave the dressing on for 7 to 10days. You may change the dressing if it is saturated greater than 50%. Do not get the dressing wet at anytime. Wash your hands with antibacterial soap, rinse and dry prior to any wound care. If you have eddy the visiting nurse or rehab facility can remove the stapes 10-14 days after surgery and place steri-strips across the wound. Leave the steri-strips in place until they fall off on their own. You may let water from the shower run on top of the steri-strips. If you do not have a visiting nurse or rehab facility, you will need to return to the office at 10-14 days for the eddy to be removed. If you have itching or redness around the dressing call the office. FOLLOW-UP: Please follow up with your surgeon in the orthopedic clinic in 6 weeks from the day of surgery. If you have eddy that need to be removed, you will need to come back to the office in 10-14 days from the day of surgery. - Diet and Activity Activity: as per physical therapy Diet: advance to your usual diet Hospital course: Ms. Gutierrez is a 67 year old female with hx of cerebral aneurysm s/p repair and CAD had mechanical fall at home and fractured R hip. She was subsequently admitted for further evaluation and treatment. Ms Gutierrez was admitted to med surg. She was evaluated by orthopedics and taken to OR on 11/07/17 for repair of hip fracture. She tolerated the procedure well. She was up in the chair the next day and did well with therapy. She was recommended for rehab and arrangements were made to go to skilled facility. She had low grade temp initially and work up for infection was negative. It was felt that this was related to the acute fracture. On 11/09 she was afebrile. She was accepted to rehab and at that she was felt ready for discharge. - Time Spent with Patient Total time spent providing and/or coordinating discharge services: 42min - Constitutional Vitals: Temp Pulse Resp BP Pulse Ox 98.4 F 75 16 110/65 92 11/09/17 11:19 11/09/17 11:19 11/09/17 11:19 11/09/17 11:19 11/09/17 11:19 General appearance: Present: A&O X 2, pleasant, answers questions appropriately - Head Head exam: Present: normocephalic - Eye Eye exam: Present: conjuntiva pink - ENT ENT exam: Present: mucous membranes dry - Respiratory Respiratory exam: Present: decreased breath sounds, CTAB. Absent: rhonchi, wheezes - Cardiovascular Cardiovascular exam: Present: RRR. Absent: tachycardia - GI/Abdominal GI/Abdominal exam: Present: soft. Absent: tenderness - Extremities Exam Extremities exam: Present: warm - Neurological Exam Neurological exam: Present: alert - Skin Skin exam: Present: warm. Absent: rash - VTE Documentation of Mechanical Device: Venous foot pump, device
--- NOTE | 2017-11-09 15:50 | Physician Discharge Referral ---
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 Priority: Secondary Status: Chronic (5) Hx of cerebral aneurysm repair Priority: Secondary Status: Chronic Expected Duration of Placement: Less than 30 days Prognosis: Good Aware of Diagnosis: Patient, Family Aware of Prognosis: Patient, Family - Transfer Medications Prescriptions: OxyCODONE Immed Rel [Roxicodone 5 MG] 5 mg PO Q4HR PRN 1 Days #5 tablet PRN Reason: Pain unrelieved by Tylenol Home Medications: Aspirin Enteric Coated [Aspirin EC] 81 mg PO DAILY 08/15/16 [History] Citalopram [CeleXA] 20 mg PO DAILY 08/15/16 [History] Multivitamin [One Daily Multivitamin] 1 each PO DAILY 11/06/17 [History] Mv-Mn/FA/Vit K1/Lycop/Lut/Zeax [Ocuvite Eye + Multi Tablet] 1 each PO DAILY 03/18 [History] Pravastatin Sodium [Pravachol] 20 mg PO HS 11/06/17 [History] Acetaminophen [Tylenol] 650 mg PO Q6HR PRN tablet 11/09/17 [Rx] Ascorbic Acid [Vitamin C] 500 mg PO BIDWM tablet 11/09/17 [Rx] Docusate [Colace] 100 mg PO BID capsule 11/09/17 [Rx] Ferrous Sulfate 325 mg PO BIDWM tablet 11/09/17 [Rx] MOM Conc [MILK OF MAGNESIA conc] 5 ml PO HS PRN ud.liq 11/09/17 [Rx] OxyCODONE Immed Rel [Roxicodone 5 MG] 5 mg PO Q4HR PRN 1 Days #5 tablet [Rx] Allergies/Adverse Reactions: 3 Allergy/AdvReac Type Severity Reaction Status Date / Time No Known Allergies Allergy Verified 08/10/17 07:48 - Respiratory Orders Oxygen / L per min (Keep) Smoking Cessation: Smoking cessation has been advised. For more information, call the [place] Tobacco Quit Line at 4-572-PWZD-NOW. - Lab Orders Lab Orders: 2 Step Mantoux Test per State regulation - Ancillary Orders May use pressure relief devices daily prn, May consult with Dentist, Parts Cataloguer, Supervisor Front PRN - Advance Directives Code Status: Full Code - History and Physical History/Physical reviewed & approved w/add comments: Repaired hip - Mobility Orders Ambulate - Rehabiliation Orders Rehab Potential: Good Rehab Orders: Evaluation for Physical Therapy, Evaluation for Occupational Therapy - Treatments Skin tear care topically daily PRN per policy, May check for fecal impaction rectally daily PRN, Fleet enema rectally every other day PRN cleansing purposes - Diet Orders Regular CERTIFICATION: I certify that the transfer of the above named patient to an Extended Care Facility is necessary for the continuing treatment of the diagnosis listed. The above information is true and accurate reflection of patient's current condition. Confidential - Redisclosure prohibited without a patient's written consent.
== END 2017-11-09 16:49 | DRG 470 ==
LOC: EMEROO 16:32 → SUATTDRO 22:04 → 3NENU 22:04
PROVIDERS: ADMIT Internal Medicine; ATTEND Internal Medicine